=== PATIENT | female | born 1995 | race Caucasian/White ===

== ENCOUNTER 2017-09-04 00:26 | Emergency (ER) | payer OTHER ==
[~2017-09-04] VITALS: Ht 154.9 cm; Wt 65.9 kg
[2017-09-04 00:31] VITALS: Ht 154.9 cm; Wt 65.9 kg
[2017-09-04] MEDS ORDERED: GLUCOPHAGE500 MG PO (00:33)
[2017-09-04] MEDS ORDERED: MONONESSA1 TAB PO (00:33)
[2017-09-04] MEDS ORDERED: NAPROSYN500 MG PO (01:02)
[2017-09-04 01:16] VITALS: BP 120/85
== END 2017-09-04 01:17 | disposition home or self-care (01) ==
LOC: D.ER 00:26
DX: M94.0 Chondrocostal junction syndrome [Tietze] (principal); R06.00 Dyspnea, unspecified; E28.2 Polycystic ovarian syndrome

== ENCOUNTER 2017-09-09 14:25 | Emergency (ER) | payer SELFPAY ==
[~2017-09-09] VITALS: Ht 154.9 cm; Wt 63.6 kg
[~2017-09-09 14:25] MED LIST: GLUCOPHAGE500 MG PO; MONONESSA1 TAB PO; NAPROSYN500 MG PO
[2017-09-09 14:58] VITALS: BP 136/86; Ht 154.9 cm; Wt 63.6 kg
[2017-09-09 16:23] LABS: COLOR YELLOW (YELLOW)
[2017-09-09 16:24] LABS: APPEARANCE CLEAR (CLEAR); BILIRUBIN NEGATIVE (NEGATIVE); GLUCOSE NEGATIVE (NEGATIVE); HCG URINE NEGATIVE (NEGATIVE); KETONE NEGATIVE (NEGATIVE); NITRITE NEGATIVE (NEGATIVE); PROTEIN NEGATIVE (NEGATIVE); UROBILINOGEN NORMAL (NORMAL)
[2017-09-09] MEDS ORDERED: DICLOFENAC SODI50 MG PO (18:09)
== END 2017-09-09 19:02 | disposition home or self-care (01) ==
LOC: D.ER 14:25
PROVIDERS: Emergency Medicine
DX: M94.0 Chondrocostal junction syndrome [Tietze] (principal); F17.200 Nicotine dependence, unspecified, uncomplicated